=== PATIENT | male | born 1985 | race Hispanic/Latino ===

== ENCOUNTER 2021-11-09 23:13 | Emergency (ER) | payer OTHER ==
[~2021-11-09] VITALS: Ht 175.3 cm; Wt 160.1 kg
[2021-11-10] MEDS ORDERED: SULF1TAB42 PO (04:26)
[2021-11-10 04:38] VITALS: BP 148/89
== END 2021-11-10 04:46 | disposition home or self-care (01) ==
LOC: EDH 23:13
DX: L02.219 Cutaneous abscess of trunk, unspecified (principal)
CPT/HCPCS: 10060